=== PATIENT | male | born 1980 | race African-American/Black ===

== ENCOUNTER 2019-02-15 15:15 | Emergency (ER) | payer OTHER ==
[~2019-02-15] VITALS: Ht 193 cm; Wt 99.8 kg
[2019-02-15 15:54] LABS: MCH 28.1 pg (26.0-34.0); MCHC 32.3 g/dL (28.0-37.0); MCV 87.2 fL (80.0-100.0); PLATELET COUNT 302 thou/uL (150-400); RBC 3.55 mil/uL (4.50-6.00); RDW 17.8 % (10.5-14.5); WBC 14.1 thou/uL (4.0-11.0)
[2019-02-15 16:04] LABS: CALCIUM 9.5 mg/dL (8.5-10.1); CREATININE 0.8 mg/dL (0.7-1.3); POTASSIUM 4.3 mmol/L (3.5-5.1)
[2019-02-15 16:06] LABS: PROTIME 9.6 Seconds (9.3-11.4)
[2019-02-15 16:10] LABS: ALBUMIN 1.7 g/dL (3.4-5.0); TOTAL BILIRUBIN 0.1 mg/dL (<0.1-1.0)
[2019-02-15 16:25] LABS: ABSOLUTE NEUTROPHILS 12.7 thou/uL (1.4-8.2); ANISOCYTOSIS 2+; NUCLEATED RBCS 1 /100WBC
[2019-02-15 16:26] LABS: POLYCHROMASIA OCCASIONAL
[2019-02-15] MEDS ORDERED: NORCO 5-325 TA1 EACH PO (18:04)
[2019-02-15] MEDS ORDERED: CEFDINIR300 MG PO (18:04)
[2019-02-15] MEDS ORDERED: ONDANSETRON HCL4 M2 PO (18:04)
[2019-02-15 18:05] VITALS: BP 123/82
== END 2019-02-15 20:39 | disposition home or self-care (01) ==
LOC: ER 15:15
PROVIDERS: Emergency Medicine
DX: N39.0 Urinary tract infection, site not specified (principal)